=== PATIENT | male | born 1970 | race Caucasian/White ===

== ENCOUNTER → 2016-05-25 18:39 | Outpatient (CLI) | payer OTHER ==
[~2016-05-25 18:39] MED LIST: CLARITIN-D1 TAB.SR . PO; FISH OIL 1,0001 CA1 PO; GLUCOSAMINE & C1 CAP PO; LISINOPRIL10 MG PO; NEXIUM40 MG PO; NORCO 10/325 TA1 TA1 PO; REMERON15 MG/UDTA PO; REMERON30 MG/UDTA PO; TOPAMAX50 MG PO; TRILEPTAL150 MG PO
== END | disposition home or self-care (01) ==
LOC: D.LABREF 18:39
DX: E29.1 Testicular hypofunction (principal)

== ENCOUNTER 2016-11-01 23:10 | Observation (INO) | payer OTHER ==
[2016-11-02 00:40] LABS: BASOPHILS 0.1 % (0-2); EOSINOPHILS 0.2 % (0-7); HEMATOCRIT 43.7 % (42.0-54.0); HEMOGLOBIN 14.1 g/dL (13.5-17.5); IMMATURE GRANULOCYTES 0.6 % (0-5); LYMPHOCYTES 10.4 % (15-50); MCH 26.3 pg (26.0-34.0); MCHC 32.3 g/dL (31.0-37.0); MCV 81.5 fL (80.0-100.0); MEAN PLATELET VOLUME 9.6 fL (7.4-10.4); MONOCYTES 16.7 % (2-11); PLATELET COUNT 296 10x3/uL (130-400); RBC 5.36 10x6/uL (4.20-6.10); RDW 16.1 % (11.5-14.5); WBC 18.7 10x3/uL (4.8-10.8)
[2016-11-02 00:44] LABS: ALBUMIN 3.6 g/dL (3.4-5.0); ANION GAP 11.8 mmol/L (8-16); BILIRUBIN - TOTAL 0.51 mg/dL (0.2-1.3); CALCIUM 8.3 mg/dL (8.5-10.1); CARBON DIOXIDE 24.7 mmol/L (21.0-32.0); POTASSIUM - SERUM 3.5 mmol/L (3.5-5.1); PROTEIN - SERUM 7.6 g/dL (6.4-8.2)
[2016-11-02 01:53] LABS: APPEARANCE HAZY (CLEAR); BILIRUBIN NEGATIVE (NEGATIVE); COLOR YELLOW (YELLOW); GLUCOSE NEGATIVE (NEGATIVE); KETONE NEGATIVE (NEGATIVE); LEUKOCYTE ESTERASE TRACE (NEGATIVE); NITRITE NEGATIVE (NEGATIVE); PROTEIN TRACE mg/dL (NEGATIVE); UROBILINOGEN NORMAL (NORMAL)
[2016-11-02 01:54] LABS: BACTERIA FEW /hpf (NONE SEEN); EPITHELIAL CELLS 0-5 /hpf (0-5); RED CELLS - URINE 25-50 /hpf (0-5); WHITE CELLS - URINE 0-5 /hpf (0-5)
--- NOTE | 2016-11-02 13:00 | NUR ---
1240 DISCHARGE INSTRUCTIONS COMPLETE. [place] PRECRIPTION AND FOLLOW UP APPOINTMENT GIVEN. ESCORTED OUT BY VOLUNTEER.
--- NOTE | 2016-11-02 18:47 | OP ---
PATIENT NAME: DA HARLEY MEDICAL RECORD: [id number] :66 LOCATION:[facility]- ADMISSION DATE:11/02/16 SURGEON: TOY MALLOY MD DATE OF OPERATION: 11/02/2016 SURGEON: Toy Malloy MD ANESTHESIA: General anesthesia by Adonay Finn CRNA PREOPERATIVE DIAGNOSIS: Left proximal ureteral stones, 4 mm plus 1 mm. POSTOPERATIVE DIAGNOSIS: Two left proximal ureteral stones, 5 mm and 3 mm. PROCEDURES: Cystoscopy, left ureteroscopy and stone extraction, left ureteral stent insertion, 6-Trinidadian x 26 cm with string attached. SPECIMENS: Two Left ureteral stone. ESTIMATED BLOOD LOSS: None. CLINICAL HISTORY: This is a 46-year-old male, who previously had kidney stones, which were treated by Dr. Finn. This was 5 years ago. He showed up in the Emergency Room early this morning with acute left flank pain radiating to the left lower quadrant. CT scan shows left proximal ureteral stones stacked up, one on top of each other and this is causing hydronephrosis. He has been n.p.o. He comes now to have the stones removed by ureteroscopy. 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 DESCRIPTION OF PROCEDURE: The patient was given induction of general anesthesia. He was placed in the dorsal lithotomy position and prepped and draped. A 21-Trinidadian cystoscope was used for visualization with a 30-degree lens. Penile urethra was normal. Prostatic urethra shows some tightening of the bladder neck. The lateral lobes are not obstructive. He has single ureteral orifices in the bladder. No bladder tumors were seen. On fluoroscopy, we could not clearly identify a radiodense stone. A Sensor wire was placed into the left ureteral orifice and up to the renal pelvis level. Over the wire, we inserted a 21-Trinidadian x 4 cm long ureteral dilation balloon. This balloon was inflated to 18 atmospheres of pressure for a few seconds and then the balloon was completely deflated and removed entirely. The cystoscope was then removed, leaving the guidewire in place. Going beside the guidewire with the rigid ureteroscope, we identified the stone in the ureter. A 3-Trinidadian 0-tip 4 wire basket was placed around the stone and a large 5-mm stone was entirely removed. We did see the other stone just proximal to the 5-mm stone also. Fortuitously, the other stone came down with our 5-mm stone and once we removed the ureteroscope, the flow of fluid actually flushed the other stone into the basket. At this point, we loaded the wire back into the cystoscope and over the wire, we inserted a 6-Trinidadian x 26 cm ureteral stent. Once the stent was in correct position, the wire was withdrawn entirely. The distal end of the stent was pushed into the bladder using a pusher. The bladder was emptied through the cystoscope. The string on the distal end of the stent is maintained. We let it hang out of his urethral meatus. It was tied to a knot to itself and then cut shorter. The patient was then awakened and brought to the recovery room. I will send him home with a prescription for [place] 5/325. He will come see me in the office next week to have the stent removed by having a string pulled. The stones had been sent to pathology for stone analysis. OPERATIVE REPORT [id number] DA HARLEY TRANSINT:[id number] Voice Confirmation ID: [id number] DOCUMENT ID: [id number] TOY MALLOY MD at 1847 CC: [id number] DICTATION DATE: 11/02/16 1049 RADIOLOGICAL TECHNOLOGIST: 11/02/16 1341 DIS IN 11/02/16 [facility] [address] [place] [address]
== END 2016-11-02 12:25 | disposition home or self-care (01) ==
LOC: D.ER 23:10 → D.WS 11-02 07:30 → OBSVTIME 11-02 07:30 → D.SDCHOLD 11-02 11:52
PROVIDERS: Family Medicine; ADMIT Urology
DX: N20.1 Calculus of ureter (principal); I10 Essential (primary) hypertension; G47.30 Sleep apnea, unspecified

== ENCOUNTER → 2016-11-25 10:29 | Outpatient (CLI) | payer OTHER ==
[2016-11-25 11:15] LABS: ANION GAP 11.7 mmol/L (8-16); CALCIUM 8.6 mg/dL (8.5-10.1); CARBON DIOXIDE 24.6 mmol/L (21.0-32.0); CREATININE - SERUM 1.8 mg/dL (0.6-1.3); POTASSIUM - SERUM 4.3 mmol/L (3.5-5.1)
== END | disposition home or self-care (01) ==
LOC: D.LAB 10:29
PROVIDERS: Urology
DX: E21.3 Hyperparathyroidism, unspecified (principal)

== ENCOUNTER → 2016-11-28 18:12 | Outpatient (CLI) | payer OTHER | END | disposition home or self-care (01) | LOC: D.LABREF 18:12 | DX: E29.1 Testicular hypofunction (principal) ==

== ENCOUNTER → 2016-12-01 10:34 | Outpatient (CLI) | payer OTHER ==
[2016-12-01 17:33] LABS: CREATININE - URINE 100.5 mg/dL (30-125)
[2016-12-01 17:34] LABS: PROTEIN - URINE 9.9 mg/dL (0.0-11.9)
[2016-12-03 09:12] LABS: CALCIUM - 24HR 351.9 mg/24 hr (100.0-300.0); CALCIUM - UR 15.3 mg/dL (Not Estab.); URIC ACID - 24HR (TOTAL) 588.8 mg/24 hr (250.0-750.0); URIC ACID - 24HR (URINE) 25.6 mg/dL (Not Estab.)
== END | disposition home or self-care (01) ==
LOC: D.US 10:34
PROVIDERS: Urology
DX: N20.0 Calculus of kidney (principal)

== ENCOUNTER → 2017-07-13 12:07 | Outpatient (CLI) | payer OTHER | END | disposition home or self-care (01) | LOC: D.RAD 12:07 | DX: M75.122 Complete rotator cuff tear or rupture of left shoulder, not specified as traumatic (principal); X58.XXXA Exposure to other specified factors, initial encounter; Y93.9 Activity, unspecified; Y92.9 Unspecified place or not applicable ==

== ENCOUNTER 2017-10-06 09:56 | Emergency (ER) | payer OTHER ==
[~2017-10-06] VITALS: Ht 190.5 cm; Wt 115.9 kg
[2017-10-06 10:38] VITALS: Ht 190.5 cm; Wt 115.9 kg
[2017-10-06 11:05] LABS: BASOPHILS 0.6 % (0-2); EOSINOPHILS 2.1 % (0-7); HEMATOCRIT 44.6 % (42.0-54.0); HEMOGLOBIN 14.3 g/dL (13.5-17.5); IMMATURE GRANULOCYTES 0.2 % (0-5); LYMPHOCYTES 22.4 % (15-50); MCH 24.7 pg (26.0-34.0); MCHC 32.1 g/dL (31.0-37.0); MCV 76.9 fL (80.0-100.0); MEAN PLATELET VOLUME 9.6 fL (7.4-10.4); NEUTROPHILS 60.7 % (40-80); PLATELET COUNT 282 10x3/uL (130-400); RDW 18.1 % (11.5-14.5); WBC 6.6 10x3/uL (4.8-10.8)
[2017-10-06 11:15] LABS: APPEARANCE CLEAR (CLEAR); BILIRUBIN NEGATIVE (NEGATIVE); COLOR YELLOW (YELLOW); GLUCOSE NEGATIVE (NEGATIVE); KETONE NEGATIVE (NEGATIVE); NITRITE NEGATIVE (NEGATIVE); PROTEIN NEGATIVE (NEGATIVE); UROBILINOGEN NORMAL (NORMAL)
[2017-10-06 11:37] LABS: ALBUMIN 3.8 g/dL (3.4-5.0); ANION GAP 14.2 mmol/L (8-16); BILIRUBIN - TOTAL 0.3 mg/dL (0.2-1.3); CALCIUM 8.8 mg/dL (8.5-10.1); CREATININE - SERUM 1.4 mg/dL (0.6-1.3); POTASSIUM - SERUM 4.2 mmol/L (3.5-5.1)
[2017-10-06] MEDS ORDERED: PERCOCET 5-3251 TAB PO (13:48)
[2017-10-06 14:20] VITALS: BP 147/86
== END 2017-10-06 14:20 | disposition home or self-care (01) ==
LOC: D.ER 09:56
PROVIDERS: Emergency Medicine
DX: R10.9 Unspecified abdominal pain (principal); I10 Essential (primary) hypertension; K21.9 Gastro-esophageal reflux disease without esophagitis

== ENCOUNTER 2020-07-27 18:03 | Emergency (ER) | payer OTHER ==
[~2020-07-27] VITALS: Ht 190.5 cm; Wt 113.6 kg
[~2020-07-27 18:03] MED LIST changes: +PERCOCET 5-3251 TAB PO
[2020-07-27 18:06] VITALS: Ht 190.5 cm; Wt 113.6 kg
[2020-07-27 18:35] LABS: BASOPHILS 0.3 % (0-2); EOSINOPHILS 0.7 % (0-7); HEMATOCRIT 54.7 % (42.0-54.0); HEMOGLOBIN 18.3 g/dL (13.5-17.5); IMMATURE GRANULOCYTES 0.5 % (0-5); LYMPHOCYTE ABS# 1.75 10x3/uL (1.32-3.57); LYMPHOCYTES 14.4 % (15-50); MCH 31.8 pg (26.0-34.0); MCHC 33.5 g/dL (31.0-37.0); MCV 95.1 fL (80.0-100.0); MEAN PLATELET VOLUME 10.6 fL (7.4-10.4); MONOCYTES 9.4 % (2-11); NEUTROPHIL ABS# 9.11 10x3/uL (1.78-5.38); NEUTROPHILS 74.7 % (40-80); PLATELET COUNT 261 10x3/uL (130-400); RBC 5.75 10x6/uL (4.20-6.10); RDW 14.4 % (11.5-14.5); WBC 12.2 10x3/uL (4.8-10.8)
[2020-07-27 18:42] LABS: ANION GAP 14.1 mmol/L (8-16); CALCIUM 9.1 mg/dL (8.5-10.1); CARBON DIOXIDE 24.9 mmol/L (21.0-32.0); CREATININE - SERUM 2.1 mg/dL (0.6-1.3)
[2020-07-27 18:48] LABS: BILIRUBIN - TOTAL 0.63 mg/dL (0.2-1.3); PROTEIN - SERUM 8.3 g/dL (6.4-8.2)
[2020-07-27 19:13] LABS: BACTERIA MODERATE HPF (NONE SEEN); BILIRUBIN NEGATIVE (NEGATIVE); KETONE NEGATIVE (NEGATIVE); NITRITE NEGATIVE (NEGATIVE); WHITE CELLS - URINE 0-5 HPF (0-1)
[2020-07-27 21:58] VITALS: BP 144/90
== END 2020-07-27 21:59 | disposition other institution (70) ==
LOC: D.ER 18:03
PROVIDERS: Family Medicine
DX: N13.2 Hydronephrosis with renal and ureteral calculous obstruction (principal); R10.9 Unspecified abdominal pain; I10 Essential (primary) hypertension; K21.9 Gastro-esophageal reflux disease without esophagitis; N39.0 Urinary tract infection, site not specified